=== PATIENT | male | born 1945 | race Caucasian/White ===

== ENCOUNTER → 2017-10-04 | Outpatient (CLI) | payer OTHER ==
[~2017-10-04] MED LIST: ACIPHEX PO; ADULT LOW DOSE81 MG PO; ANASPAZ0.125 MG SL; ASACOL400 MG PO; BENTYL 20 MG TA20 M1 PO; COUMADIN 1MG TAB1 M1 PO; GLYCOPYRROLATE 22 M1 PO; HYZAAR 100-12.1 EACH PO; HYZAAR 100-251 EACH PO; IRON325 OR; IRON55 MG PO; MULTIVITAMIN W1 EAC5 PO; OXYIR5 MG PO; PERCOCET 5-3251 EACH PO; VICODIN 5-5001 EACH PO; ZETIA10 MG PO
[2017-10-04 16:02] LABS: ABSOLUTE BASOPHILS 0.1 thou/uL (0.0-0.2); ABSOLUTE EOSINOPHILS 0.3 thou/uL (0.0-0.7); ABSOLUTE LYMPHOCYTES 1.6 thou/uL (0.8-5.3); ABSOLUTE MONOCYTES 0.7 thou/uL (0.0-1.2); ABSOLUTE NEUTROPHILS 4.9 thou/uL (1.6-8.1); BASOPHILS 0.9 %; EOSINOPHILS 3.6 %; HEMATOCRIT 40.8 % (42.0-52.0); HEMOGLOBIN 13.2 gm/dL (14.0-18.0); LYMPHOCYTES 21.1 %; MCH 28.5 pg (26.0-34.0); MCHC 32.4 g/dL (28.0-37.0); MCV 87.8 fL (80.0-100.0); MONOCYTES 8.7 %; MPV 8.2 fl. (7.2-11.1); NUCLEATED RBCS 0 /100WBC; PLATELET COUNT* 279 thou/uL (150-400); POLYS 65.7 %; RBC 4.65 mil/uL (4.50-6.00); RDW-CV 14.3 % (10.5-14.5); WBC 7.5 thou/uL (4.0-11.0)
[2017-10-04 16:19] LABS: ALBUMIN 3.7 g/dL (3.4-5.0); CALCIUM 9.6 mg/dL (8.5-10.1); CREATININE 1.4 mg/dL (0.6-1.3); POTASSIUM 3.8 mmol/L (3.5-5.1); TOTAL BILIRUBIN 0.3 mg/dL (<0.1-1.0); TOTAL PROTEIN 7.9 g/dL (6.4-8.2)
[2017-10-04 17:03] LABS: ESR (SEDRATE) 39 mm/hr (0-20)
== END ==
LOC: M.LAB 15:44
PROVIDERS: Internal Medicine Gastroenterology
DX: K50.90 Crohn's disease, unspecified, without complications (principal); E78.00 Pure hypercholesterolemia, unspecified

== ENCOUNTER → 2017-10-24 | Outpatient (CLI) | payer OTHER | LOC: M.LAB 06:19 | DX: Z01.812 Encounter for preprocedural laboratory examination (principal) ==

== ENCOUNTER 2018-09-23 08:52 | Inpatient (IN) | payer OTHER ==
[~2018-09-23] VITALS: Ht 152.4 cm; Wt 87.6 kg
[2018-09-23 08:57] VITALS: BP 176/88
[2018-09-23] MEDS ORDERED: BENTYL 20 MG TA20 M1 PO (09:05)
[2018-09-23] MEDS ORDERED: LIALDA1.2 GM PO (09:05)
[2018-09-23] MEDS ORDERED: OMEPRAZOLE40 MG PO (09:05)
[2018-09-23] MEDS ORDERED: COZAAR 25 MG TA25 MG PO (09:05)
[2018-09-23] MEDS ORDERED: ZOCOR40 MG PO (09:05)
[2018-09-23] MEDS ORDERED: ASPIR 8181 MG PO (09:06)
[2018-09-23] MEDS ORDERED: NORCO 5-325 TA1 EAC1 PO (09:06)
[2018-09-23] MEDS ORDERED: CENTRUM SILVER1 EAC2 PO (09:07)
[2018-09-23] MEDS ORDERED: VITAMIN E400 UNIT PO (09:07)
[2018-09-23 09:28] LABS: ABSOLUTE EOSINOPHILS 0.1 thou/uL (0.0-0.7); ABSOLUTE LYMPHOCYTES 1.2 thou/uL (0.8-5.3); ABSOLUTE MONOCYTES 0.9 thou/uL (0.0-1.2); BASOPHILS 0.3 %; EOSINOPHILS 0.7 %; HEMATOCRIT 39.5 % (42.0-52.0); HEMOGLOBIN 13.2 gm/dL (14.0-18.0); LYMPHOCYTES 9.8 %; MCH 29.1 pg (26.0-34.0); MCHC 33.5 g/dL (28.0-37.0); MCV 86.9 fL (80.0-100.0); MONOCYTES 7.4 %; MPV 8.6 fl. (7.2-11.1); NUCLEATED RBCS 0 /100WBC; PLATELET COUNT* 279 thou/uL (150-400); POLYS 81.8 %; RBC 4.55 mil/uL (4.50-6.00); RDW-CV 13.4 % (10.5-14.5); WBC 12.2 thou/uL (4.0-11.0)
[2018-09-23 09:33] LABS: ANION GAP 12 mmol/L (7-16); BUN 14 mg/dL (7-18); CALCIUM 9.2 mg/dL (8.5-10.1); CHLORIDE 101 mmol/L (98-107); CO2 24 mmol/L (21-32); CREATININE 1.2 mg/dL (0.6-1.3); GLUCOSE 179 mg/dL (70-99); POTASSIUM 3.8 mmol/L (3.5-5.1); SODIUM 137 mmol/L (136-145)
[2018-09-23 09:42] LABS: ALBUMIN 3.5 g/dL (3.4-5.0); ALKALINE PHOSPHATASE 106 U/L (46-116); LIPASE 1296 U/L (73-393); SGOT 18 U/L (15-37); SGPT 30 U/L (30-65); TOTAL BILIRUBIN 0.6 mg/dL (<0.1-1.0); TROPONIN-I LEVEL <0.06 ng/mL (<0.06)
--- NOTE | 2018-09-23 09:55 | NUR ---
PT TO CT
[2018-09-23 09:59] LABS: URINE BILIRUBIN NEGATIVE (Negative); URINE BLOOD TRACE (Negative); URINE CLARITY CLEAR; URINE COLOR YELLOW; URINE GLUCOSE-RANDOM NEGATIVE (Negative); URINE KETONES TRACE (Negative); URINE LEUKOCYTES-REFLEX NEGATIVE (Negative); URINE NITRITE-REFLEX NEGATIVE (Negative); URINE PROTEIN 2+ (Negative); URINE SPECIFIC GRAVITY 1.025 (1.005-1.030); URINE UROBILINOGEN 0.2 E.U./dl (0.2-1.0)
[2018-09-23 10:12] LABS: BACTERIA-REFLEX 1-9 Few /HPF (None Seen); CRYSTALS None Seen /LPF (None Seen); HYALINE CASTS 4-10 Moderate /LPF (None Seen); MUCUS 0-3 Light strn/LPF (None Seen); SQUAMOUS 0-3 Few /LPF (0-3); URINE RBC 3-10 Few /HPF (0-2); URINE WBC-REFLEX 0-5 Rare /HPF (0-5)
[2018-09-23 13:12] VITALS: BP 162/71
[2018-09-23 13:54] VITALS: BP 151/86
[2018-09-23 16:18] VITALS: BP 135/59
--- NOTE | 2018-09-23 18:38 | NUR ---
PT ADMITTED TO TELE FLOOR. AOX4 , ON 4 L NC , O2 SATURATION IS 93%. CALL LIGHT AT REACH. MED REC DONE. MED RESTARTED. IV FLUID INFUSING AT 250CC PER HOUR. PT HAS ABD PAIN OF 7. STATTEES HE IS COMFORTABLE WITH THAT PAIN LEVEL. WILL CONTINUE TO MONITOR
[2018-09-23 20:00] VITALS: BP 132/80
[2018-09-24] VITALS: BP 114/63
[2018-09-24 05:21] LABS: ALBUMIN 2.6 g/dL (3.4-5.0); CALCIUM 7.9 mg/dL (8.5-10.1); CREATININE 1.1 mg/dL (0.6-1.3); POTASSIUM 3.8 mmol/L (3.5-5.1); TOTAL BILIRUBIN 0.6 mg/dL (<0.1-1.0); TOTAL PROTEIN 6.4 g/dL (6.4-8.2)
--- NOTE | 2018-09-24 07:02 | NUR ---
ASSUMED PT CARE AT 1930. ASSESSMENT COMPLETED CHARTED. ABLE TO MAKE NEED KNOWN. NO C/O PAIN OR DISCOMFORT. C/O SOA, NOTIFIED DR AND ORDERS GIVEN. BREATHING TREATMENTS HELPED. IV FLUIDS RUNNING PER P.O. UP WITH SBA.VSS. WILL CONTINUE TO MONITOR.
[2018-09-24 07:50] VITALS: BP 99/48
[2018-09-24 11:42] VITALS: BP 91/37
--- NOTE | 2018-09-24 17:39 | NUR ---
PT REMAINED ALERT AND ORIENTED. PT BP DROPPED, TACHYCARIA. SOA. DOCTOR PAGED, LASIX ORDERED AND GIVEN. PT FEELS BETTER. CLR LIQUID DIET. AWAITING GI TO SEE PT. FALL RISK PRECAUTIONS IN PLACE. HOURLY ROUNDING COMPLETED. WILL CONTINUE TO MONITOR.
[2018-09-24 20:15] VITALS: BP 142/55
[2018-09-25] VITALS: BP 125/46
[2018-09-25 04:00] VITALS: BP 113/41
--- NOTE | 2018-09-25 05:26 | NUR ---
PT ALERT AND ORIENTED. VSS ON 4L NC. ASSESSMENT COMPLETED AND DOCUMENTED. PO MEDS GIVEN PER EMAR. UNSUCCESSFUL IV PERIPHERAL IV ATTEMPTS. PICC LINE STARTING TODAY. PT TO URINALS FOR VOIDING. CALL LIGHT WITHIN REACH. HOURLY RONUDINGS MADE. WILL CONTINUE PLAN OF CARE.
[2018-09-25 08:00] VITALS: BP 112/55
[2018-09-25 12:14] VITALS: BP 131/65
--- NOTE | 2018-09-25 12:20 | EKG ---
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 : 1945 Requested By: Dane Hoover Order Number: [id number] MD: Hugo Samayoa Measurements Intervals [place] Rate: 105 P: 18 DE: 153 QRS: 14 QRSD: 90 T: 34 QT: 328 QTc: 434 Interpretive Statements Sinus tachycardia Ventricular premature complex Probable left atrial enlargement Baseline wander in lead(s) V3 Compared to ECG 05/11/2009 07:58:28 Ventricular premature complex(es) now present Sinus arrhythmia no longer present Electronically Signed On 09-25-2018 12:19:44 CDT by Hugo Samayoa [email or web address] <ELECTRONICALLY SIGNED> By: Hugo Samayoa MD, [facility] 09/25/18 1219 Hugo Samayoa MD, [facility] /EPI
[2018-09-25 20:00] VITALS: BP 127/64
[2018-09-26] VITALS: BP 119/45
[2018-09-26 04:00] VITALS: BP 148/62
--- NOTE | 2018-09-26 07:57 | NUR ---
ASSUMED PT CARE AT 1930. ASSESSMENT COMPLETED CHARTED. ABLE TO MAKE NEEDS KNOWN. UP AD ADDISON IN ROOM. NO C/O PAIN OR DISCOMFORT. SOA AND ANXIETY AND HAD TO TURN OXYGEN BACK UP TO 4L AFTER TRYING TO WEAN OFF O2. PT IS UPSET THAT IS NOT WITH PT AND MISSES BEING HOME. PT DIDNT SLEEP MUCH LAST NIGHT. WILL CONTINUE TO MONITOR.
[2018-09-26 08:00] VITALS: BP 140/75
[2018-09-26 11:30] VITALS: BP 139/55
--- NOTE | 2018-09-26 11:31 | NUR ---
Pt is A&O. Resides at home with his . Supportive family. Independent. No DME, no home o2, currently on 4L, hopes to be able to wean off prior to dc. No hx of HH or SNF. Goal is home at dc, no needs anticipated. CM to follow regarding potential for o2 needs.
[2018-09-26] MEDS ORDERED: LEVAQUIN 500 M500 M2 PO ×2 (12:34→12:40)
[2018-09-26] MEDS ORDERED: PREDNISONE 10 M10 MG PO ×2 (12:34→12:40)
[2018-09-26] MEDS ORDERED: LASIX 40 MG TAB40 M2 PO (13:04)
[2018-09-26] MEDS ORDERED: KLOR-CON 1010 MEQ PO (13:04)
[2018-09-26 13:57] VITALS: BP 139/55
[2018-09-26 15:17] VITALS: BP 139/55
--- NOTE | 2018-09-26 15:19 | NUR ---
Pt discharging to home today, Pt needs home o2, faxed referral to Monika at [facility]. Tank to be delivered within the hour, updated nurse.
--- NOTE | 2018-09-26 16:48 | NUR ---
ASSUMED PT CARE AT 0700, PT A&O X4, VSS, REMAINS ON 3LPM VIA NC, CYTOGENETIC TECHNOLOGIST TRACING SINUS RHYTHM, FULL ASSESSMENT CHARTED. PT DISCHARGED FROM UNIT AT APPROX 1600 WITH AND NURSING STAFF VIA WHEELCHAIR, EDUCATED ON ALL DISCHARGE INSTRUCTIONS INCLUDING FOLLOW UP APPTS AND MEDICATIONS. IV AND CYTOGENETIC TECHNOLOGIST REMOVED, HOURLY ROUNDING COMPLETED.
--- NOTE | 2018-09-28 20:16 | CON ---
[address] [address] CONSULTATION Name: JD MAURER Room: [address] .R.#: [id number] Admission: 09/23/18 Attend Phys: Earnest Kyle Discharge: 09/26/18 Date of : 43 Report #: [id number] THIS REPORT FOR: //name// CC: Baldev Shannon HISTORY OF PRESENT ILLNESS: This is a pleasant 73-year-old gentleman with past medical history significant for Crohn's disease, who is presenting for evaluation of shortness of breath and abdominal pain. The patient reports the pain is located in the left side of the abdomen, is localized, sharp and nonradiating. Initially with the pain, he had associated nausea, but no vomiting. Yesterday, patient's nausea subsided and patient reported improvement in appetite. He denies similar episodes in the past. He denies any hematemesis, hematochezia, weight loss or other alarm symptoms. The patient's Crohn's disease was diagnosed in 2001 and of late has been inactive. The patient has been maintained on Asacol and Lialda for his Crohn's disease, which he claims he continues to take. The patient's last colonoscopy was performed on 10/24/2017, which demonstrated two colonic polyps. Random colonic biopsies failed to demonstrate presence of active colitis or microscopic colitis. PAST MEDICAL HISTORY: As mentioned above, the patient has a past medical history of Crohn's disease. PAST SURGICAL HISTORY: The patient had a cholecystectomy, back surgery, hemorrhoid surgery, bilateral hip replacement. SOCIAL HISTORY: The patient quit smoking several years back, but has a [id number]-mzul smoking history. He denies significant alcohol or recreational drug use. FAMILY HISTORY: There is no family history of inflammatory bowel disease or colon cancer. REVIEW OF SYSTEMS: Comprehensive 10-point review of systems is negative except for what was mentioned in the HPI. PHYSICAL EXAMINATION: VITAL SIGNS: Temperature 36.3, pulse rate 102, respirations 20, blood pressure 99/48. GENERAL: The patient is alert, awake, oriented x 3. HEENT: Pupils are round and reactive to light and accommodation. Mucous membranes are moist. There is no congestion. LUNGS: Clear to auscultation bilaterally. CARDIOVASCULAR: Rate and rhythm regular, S1, S2 present. ABDOMEN: Soft. There is no significant distention, [place] [address] CONSULTATION Name: JD MAURER Room: [address]#: [id number] Admission: 09/23/18 Attend Phys: Earnest Kyle Discharge: 09/26/18 Date of : 43 Report #: [id number] EXTREMITIES: Warm and well perfused. There is no edema. SKIN: Warm and dry. LABORATORY DATA: Hemoglobin 13.8, hematocrit 39.5, WBC count 12.2. Sodium 137, potassium 3.8, chloride 103, bicarb 25, BUN 11, creatinine 1.1. Total bilirubin 0.6, AST 13, ALT 21, alkaline phosphatase 72. Lipase on presentation 1296. CT abdomen and pelvis demonstrates findings consistent with acute pancreatitis involving the distal tail of pancreas with peripancreatic soft tissue inflammatory stranding. No evidence of inflammatory mass, abscess, pseudocyst or other focal inflammatory process. ASSESSMENT AND PLAN: Pleasant 73-year-old gentleman with past medical history significant for Crohn's disease, presenting with mild acute pancreatitis without local complications or end organ damage. I would advance diet as tolerated. Continue conservative management. Pain control per primary team. I would recommend getting an EUS 4 weeks from today to evaluate the pancreas. <ELECTRONICALLY SIGNED> By: Kelby Vergara MD 09/28/182015 1018 1911Kelby Vergara MD /nt
== END 2018-09-26 16:00 | disposition home or self-care (01) | DRG 177 ==
LOC: M.ERS 08:52 → M.2W 11:09 → M.TBA-ER 11:09 → M.2W 13:19
PROVIDERS: Emergency Medicine Emergency Medical Services; ADMIT Internal Medicine
DX: J15.6 Pneumonia due to other Gram-negative bacteria (principal); K85.90 Acute pancreatitis without necrosis or infection, unspecified; K50.90 Crohn's disease, unspecified, without complications; J44.1 Chronic obstructive pulmonary disease with (acute) exacerbation; J44.0 Chronic obstructive pulmonary disease with (acute) lower respiratory infection; Z96.643 Presence of artificial hip joint, bilateral; E78.00 Pure hypercholesterolemia, unspecified; I10 Essential (primary) hypertension; R09.02 Hypoxemia; Z90.49 Acquired absence of other specified parts of digestive tract; Z87.891 Personal history of nicotine dependence; Z88.6 Allergy status to analgesic agent; Z88.0 Allergy status to penicillin; Z88.8 Allergy status to other drugs, medicaments and biological substances

== ENCOUNTER 2019-07-11 08:47 | Emergency (ER) | payer OTHER ==
[~2019-07-11] VITALS: Ht 167.6 cm; Wt 88.9 kg
[~2019-07-11 08:47] MED LIST changes: +ASPIR 8181 MG PO; +CENTRUM SILVER1 EAC2 PO; +COZAAR 25 MG TA25 MG PO; +KLOR-CON 1010 MEQ PO; +LASIX 40 MG TAB40 M2 PO; +LEVAQUIN 500 M500 M2 PO; +LIALDA1.2 GM PO; +NORCO 7.5-3251 EACH PO; +OMEPRAZOLE40 MG PO; +PREDNISONE 10 M10 MG PO; +VITAMIN E400 UNIT PO; +ZOCOR40 MG PO
[2019-07-11 09:48] LABS: URINE BLOOD 3+ (Negative); URINE CLARITY CLEAR; URINE COLOR DARK YELLOW; URINE GLUCOSE-RANDOM NEGATIVE (Negative); URINE KETONES NEGATIVE (Negative); URINE LEUKOCYTES-REFLEX TRACE (Negative); URINE NITRITE-REFLEX NEGATIVE (Negative); URINE PROTEIN 2+ (Negative); URINE SPECIFIC GRAVITY >= 1.030 (1.005-1.030)
[2019-07-11 09:50] LABS: ABSOLUTE BASOPHILS 0.1 thou/uL (0.0-0.2); ABSOLUTE EOSINOPHILS 0.3 thou/uL (0.0-0.7); ABSOLUTE LYMPHOCYTES 1.6 thou/uL (0.8-5.3); ABSOLUTE MONOCYTES 0.7 thou/uL (0.0-1.2); ABSOLUTE NEUTROPHILS 6.9 thou/uL (1.6-8.1); BASOPHILS 0.5 %; EOSINOPHILS 3.4 %; HEMATOCRIT 42.8 % (42.0-52.0); HEMOGLOBIN 14.2 gm/dL (14.0-18.0); LYMPHOCYTES 16.5 %; MCHC 33.2 g/dL (28.0-37.0); MCV 87.2 fL (80.0-100.0); MONOCYTES 7.3 %; MPV 8.3 fl. (7.2-11.1); NUCLEATED RBCS 0 /100WBC; PLATELET COUNT* 280 thou/uL (150-400); POLYS 72.3 %; RBC 4.91 mil/uL (4.50-6.00); RDW-CV 13.5 % (10.5-14.5); WBC 9.5 thou/uL (4.0-11.0)
[2019-07-11 09:51] LABS: ICTOTEST (BILI CONFIRMATORY) Negative (Negative); URINE BILIRUBIN 2+ (Negative)
[2019-07-11 09:54] LABS: SQUAMOUS 0-3 Few /LPF (0-3); URINE WBC-REFLEX 6-15 Few /HPF (0-5)
[2019-07-11 09:55] LABS: BACTERIA-REFLEX 1-9 Few /HPF (None Seen); URINE RBC >20 Many /HPF (0-2)
[2019-07-11 09:56] LABS: CRYSTALS None Seen /LPF (None Seen); HYALINE CASTS 0-3 Few /LPF (None Seen); MUCUS 0-3 Light strn/LPF (None Seen)
[2019-07-11 09:58] LABS: CALCIUM 8.7 mg/dL (8.5-10.1); CREATININE 1.4 mg/dL (0.6-1.3)
[2019-07-11 10:03] LABS: ALBUMIN 4.3 g/dL (3.4-5.0); TOTAL BILIRUBIN 0.5 mg/dL (<0.1-1.0); TOTAL PROTEIN 8.6 g/dL (6.4-8.2)
[2019-07-11 10:08] LABS: PROTIME 10.4 Seconds (9.20-11.50)
[2019-07-11 13:43] VITALS: BP 135/77
--- NOTE | 2019-07-11 17:31 | EKG ---
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 : 1945 Requested By: Helga Kay Order Number: [id number] MD: Bala Clancy Measurements Intervals [place] Rate: 90 P: 20 [place]: 151 QRS: 2 QRSD: 101 T: 33 QT: 374 QTc: 458 Interpretive Statements Sinus rhythm Compared to ECG 09/23/2018 09:26:26 Sinus tachycardia no longer present Ventricular premature complex(es) no longer present Electronically Signed On 07-11-2019 17:30:07 CDT by Bala Clancy [email or web address] <ELECTRONICALLY SIGNED> By: Bala Clancy MD, FACC 07/11/19 1730 0945 0945 Bala Clancy MD, [facility] /EPI
== END 2019-07-11 13:49 | disposition home or self-care (01) ==
LOC: M.ERS 08:47
PROVIDERS: Personal Emergency Response Attendant
DX: N21.0 Calculus in bladder (principal); N32.89 Other specified disorders of bladder; R33.9 Retention of urine, unspecified; I10 Essential (primary) hypertension; E78.00 Pure hypercholesterolemia, unspecified; K50.90 Crohn's disease, unspecified, without complications; Z96.643 Presence of artificial hip joint, bilateral; Z88.0 Allergy status to penicillin; Z88.6 Allergy status to analgesic agent; Z88.8 Allergy status to other drugs, medicaments and biological substances

== ENCOUNTER → 2021-04-21 | Outpatient (CLI) | payer OTHER | LOC: M.LAB 14:07 | PROVIDERS: ATTEND Urology | DX: C61 Malignant neoplasm of prostate (principal) ==